=== PATIENT | male | born 1960 | race African-American/Black ===

== ENCOUNTER 2018-02-09 11:14 | Emergency (ER) | payer OTHER ==
[~2018-02-09] VITALS: Ht 170.2 cm; Wt 65.8 kg
[2018-02-09 11:58] VITALS: BP 196/102
[2018-02-09] MEDS ORDERED: NAPROXEN 500 MG TABLET PO STA (12:05)
--- NOTE | 2018-02-09 12:13 | PHYS DOC ---
Past Medical History Past Medical History: Hypertension Smoking: Cigarettes, Less than 1pk/day Adult General Chief Complaint Chief Complaint: BACK PAIN OR INJURY HPI HPI Patient is a 57 year old male who presents with complaining of back pain. Patient states he had an accidental fall while he was at work 3 days ago from a standing position and landed on his back on concrete area without loss of consciousness. Patient complaining of constant lower abdominal pain that gradually getting worse. Patient complaining of increasing pain with movement. Patient denies focal neuro deficit, fever and chills, abdominal pain, other injuries, urinary and bowel incontinence. Rated his pain 8/10 and states he took Aleve without improvement of his pain. Review of Systems Review of Systems Constitutional: Denies fever or chills [] Eyes: Denies change in visual acuity, redness, or eye pain [] HENT: Denies nasal congestion or sore throat [] Respiratory: Denies cough or shortness of breath [] Cardiovascular: No additional information not addressed in HPI [] GI: Denies abdominal pain, nausea, vomiting, bloody stools or diarrhea [] : Denies dysuria or hematuria [] Musculoskeletal: Reports back pain , denies joint pain [] Integument: Denies rash or skin lesions [] Neurologic: Denies headache, focal weakness or sensory changes [] Endocrine: Denies polyuria or polydipsia [] All other systems were reviewed and found to be within normal limits, except as documented in this note. Current Medications Current Medications Current Medications Medications (Trade) Dose Ordered Sig/Nevaeh Start Time Stop Time Status Last Admin Dose Admin Acetaminophen/ Hydrocodone Bitart (Lortab 5/325) 1 tab 1X ONCE 02/09/18 13:00 02/09/18 13:01 DC 02/09/18 13:06 1 TAB Naproxen (Naprosyn) 500 mg 1X STAT 02/09/18 12:05 02/09/18 12:06 DC 02/09/18 12:18 500 MG Allergies Allergies Allergies Coded Allergies Type Severity Reaction Last Updated Verified No Known Drug Allergies 02/09/18 No Physical Exam Physical Exam Constitutional: Well developed, well nourished, mild distress, non-toxic appearance. [] HENT: Normocephalic, atraumatic Eyes: PERRLA, EOMI, conjunctiva normal, no discharge. [] Neck: Normal range of motion, no tenderness, supple, no stridor. [] Cardiovascular:Heart rate regular rhythm, no murmur [] Lungs & Thorax: Bilateral breath sounds clear to auscultation [] Abdomen: Bowel sounds normal, soft, no tenderness, no masses, no pulsatile masses. [] Skin: Warm, dry, no erythema, no rash. [] Back: No midline tenderness, no CVA tenderness, paraspinal muscle spasm and limited range of motion secondary to pain. [] Extremities: No tenderness, no cyanosis, no clubbing, ROM intact, no edema. [] Neurologic: Alert and oriented X 3, normal motor function, normal sensory function, no focal deficits noted. [] Psychologic: Affect normal, judgement normal, mood normal. [] Current Patient Data Vital Signs Vital Signs Date Time Temp Pulse Resp B/P (MAP) Pulse Ox O2 Delivery O2 Flow Rate FiO2 02/09/18 11:58 98.7 72 16 196/102 (133) 97 Room Air 98.7 EKG EKG [] Radiology/Procedures Radiology/Procedures [facility] [address] [facility] [place] [address] IMAGING REPORT Signed PATIENT: JANET CLEANING ACCOUNT: [id number] : 1960 LOCATION: ER AGE: 57 SEX: M EXAM STATUS: PRE ER ORD. PHYSICIAN: BRANDEN BUCKNER MD REASON: fall PROCEDURE: LUMBAR SPINE MIN 4V Lumbar spine, 5 views, 02/09/2018: HISTORY: Back pain after a fall There is a mild lumbar scoliosis. The lumbar vertebral heights are well-maintained. There is mild disc space narrowing and marginal spurring at multiple levels. There are mild sclerotic changes involving the facet joints in the lower lumbar spine. There is no evidence of spondylolysis. There is a moderate amount gas and stool scattered throughout the colon. IMPRESSION: 1. Mild multilevel degenerative change. 2. No acute bony abnormality is detected. Electronically signed by: Tylor Spears MD (02/09/2018 12:55 PM) [facility] DICTATED and SIGNED BY: TYLOR SPEARS MD DATE: 02/09/18 7470 Course & Med Decision Making Course & Med Decision Making discharge: I've spoken with the patient and/or caregivers. I've explained the patient's condition, diagnosis and treatment plan based on information available to me at this time. I've answered the patient's and/or caregivers questions and addressed any concerns. The patient and/or caregivers have a good understanding the patient's diagnosis, condition and treatment plan as can be expected at this point. Vital signs have been stabilized. The patient's condition is stable for discharge from the emergency department. The patient will pursue further outpatient evaluation with her primary care provider or other designated consulting physician as outlined in the discharge instructions. Patient and/or caregivers are agreeable to this plan of care and follow-up instructions have been explained in detail. The patient and/or caregivers have received these instructions in written format and expressed understanding of these discharge instructions. The patient and her caregivers are aware that if any significant change in condition or worsening of symptoms should prompt him to immediately return to this of the closest emergency department. If an emergent department is not readily available I would encourage him to call 911. Thalia Disclaimer Thalia Disclaimer This electronic medical record was generated, in whole or in part, using a voice recognition dictation system. Departure Departure Impression: Primary Impression: Lumbosacral strain Additional Impressions: Uncontrolled hypertension Tobacco abuse Tobacco abuse counseling Disposition: HOME, SELF-CARE (at 1305) Condition: IMPROVED Patient Instructions: Hypertension, Lumbosacral Strain, Smoking Cessation, Tips For Success Additional Instructions: Apply ice on your back Follow-up with your primary care physician in 3-5 days Return to ER if not getting better Scripts Hydrocodone/Apap 5-325 (NORCO 5-325 TABLET) 1 Each Tablet 1 TAB PO PRN Q6HRS PRN for PAIN, #14 TAB 0 Refills Prov: BRANDEN BUCKNER MD 02/09/18 Cyclobenzaprine Hcl (CYCLOBENZAPRINE HCL) 10 Mg Tablet 1 TAB PO TID, #30 TAB Prov: BRANDEN BUCKNER MD 02/09/18 Problem Qualifiers BRANDEN BUCKNER MD Feb 09, 2018 12:13
--- NOTE | 2018-02-09 12:58 | RAD ---
Lumbar spine, 5 views, 02/09/2018: HISTORY: Back pain after a fall There is a mild lumbar scoliosis. The lumbar vertebral heights are well-maintained. There is mild disc space narrowing and marginal spurring at multiple levels. There are mild sclerotic changes involving the facet joints in the lower lumbar spine. There is no evidence of spondylolysis. There is a moderate amount gas and stool scattered throughout the colon. IMPRESSION: 1. Mild multilevel degenerative change. 2. No acute bony abnormality is detected. Electronically signed by: Tylor Spears MD (02/09/2018 12:55 PM) [facility]
[2018-02-09] MEDS ORDERED: HYDROcodone/APAP 5/325MG 1 TAB TABLET PO ONE (13:00)
[2018-02-09] MEDS ORDERED: CYCL10TA2 PO (13:10)
[2018-02-09] MEDS ORDERED: HYDR-971 PO (13:10)
== END 2018-02-09 13:19 | disposition home or self-care (01) ==
LOC: ER 11:14
DX: S39.012A Strain of muscle, fascia and tendon of lower back, initial encounter (principal); I10 Essential (primary) hypertension; R10.30 Lower abdominal pain, unspecified; F17.210 Nicotine dependence, cigarettes, uncomplicated; W18.39XA Other fall on same level, initial encounter; Y93.89 Activity, other specified; Y92.89 Other specified places as the place of occurrence of the external cause; Y99.8 Other external cause status
CPT/HCPCS: 72110; 99284